=== PATIENT | female | born 1935 | race Caucasian/White ===

== ENCOUNTER → 2017-01-19 | Outpatient (CLI) | payer MEDICARE, OTHER | LOC: CT 13:33 | DX: R22.42 Localized swelling, mass and lump, left lower limb (principal); R93.8 Abnormal findings on diagnostic imaging of other specified body structures | CPT/HCPCS: 72193; J7050; Q9962 ==

== ENCOUNTER → 2021-06-11 | Outpatient (CLI) | payer MEDICARE | LOC: MAMO 12:48 | DX: Z12.31 Encounter for screening mammogram for malignant neoplasm of breast (principal); Z78.0 Asymptomatic menopausal state | CPT/HCPCS: 77063; 77067 ==